=== PATIENT | male | born 1940 | race Caucasian/White ===

== ENCOUNTER 2020-09-10 15:53 | Observation (INO) | payer OTHER ==
[~2020-09-10] VITALS: Ht 193 cm; Wt 104.3 kg
--- NOTE | ~2020-09-10 | EEG ---
PATIENT:CAROLE REESE MEDICAL RECORD: [id number] DATE OF : 44 LOCATION:D.222 D.MS ADMISSION DATE: 09/10/20 REFERRING PHYSICIAN: INTERPRETING PHYSICIAN: SHIRLENE YBARRA MD DATE OF SERVICE: 09/10/2020 ROOM NUMBER: [id number]. EEG ORDERED BY: Dr. Denny. CASE HISTORY: A 79-year-old male found down unresponsive at home with the patient reporting prodromal symptoms of feeling like he would pass out and then going to his bedroom and lying down and on arousal found EMS in his bedroom. Reportedly, there was suspicion of seizure. The patient had reported a similar episode 2 years ago. The patient was started on Keppra in the ER. PROCEDURE: EEG done as a routine bedside portable recording using the standard 10-20 international electrode system. A 16-channel was used with 17th as EKG. Photic stimulation done as activation procedure. DESCRIPTION: EEG opens with the patient awake with the record displaying a well-organized posterior dominant rhythm of 8 Hz, this is of moderate amplitude, symmetric and attenuates with eye opening. Occasional bilateral independent single theta slow waves were seen as well as rare to infrequent bilateral independent single sharp waves. There was a possible slight predominance of these nonspecific changes in the left hemisphere. No epileptiform change such as spike, polyspike, or spike and wave was seen. Photic stimulation did not yield a photoparoxysmal response. IMPRESSION: Mildly abnormal EEG with nonspecific changes, this might suggest mild cortical dysfunction, there was no evidence of underlying seizure disorder in this recording. TRANSINT:[id number] Voice Confirmation ID: [id number] DOCUMENT ID: [id number] SHIRLENE YBARRA MD CC: [id number] DICTATION DATE: 09/11/20 1230 AIR BAG STRIPPER: 09/11/20 1324 ADM IN [facility] [address] [place] [address]
[2020-09-10 16:10] LABS: BASOPHILS 0.2 % (0-2); EOSINOPHILS 2.5 % (0-7); HEMATOCRIT 48.1 % (42.0-54.0); HEMOGLOBIN 16.6 g/dL (13.5-17.5); IMMATURE GRANULOCYTES 0.7 % (0-5); LYMPHOCYTE ABS# 1.23 10x3/uL (1.32-3.57); LYMPHOCYTES 28.4 % (15-50); MCH 31.7 pg (26.0-34.0); MCHC 34.5 g/dL (31.0-37.0); MCV 91.8 fL (80.0-100.0); MEAN PLATELET VOLUME 11.4 fL (7.4-10.4); MONOCYTES 5.8 % (2-11); NEUTROPHILS 62.4 % (40-80); PLATELET COUNT 150 10x3/uL (130-400); RBC 5.24 10x6/uL (4.20-6.10); RDW 13.1 % (11.5-14.5); WBC 4.3 10x3/uL (4.8-10.8)
[2020-09-10 16:17] LABS: BILIRUBIN NEGATIVE (NEGATIVE); KETONE MODERATE mg/dL (NEGATIVE); NITRITE NEGATIVE (NEGATIVE); UROBILINOGEN NORMAL mg/dL (< 2)
[2020-09-10 16:18] LABS: WHITE CELLS - URINE OCC HPF (0-1)
[2020-09-10 16:19] LABS: APTT 23.4 SECONDS (22.8-39.4); INR 1.13 (0.85-1.17); PROTIME 13.4 SECONDS (11.6-15.0)
[2020-09-10 16:27] LABS: UDS - AMPHET NEGATIVE QUAL (NEGATIVE); UDS - BARB NEGATIVE QUAL (NEGATIVE); UDS - BENZO NEGATIVE QUAL (NEGATIVE); UDS - COCAINE NEGATIVE QUAL (NEGATIVE); UDS - OPIATE NEGATIVE QUAL (NEGATIVE); UDS - PCP NEGATIVE QUAL (NEGATIVE); UDS - THC POSITIVE QUAL (NEGATIVE)
[2020-09-10 16:31] LABS: CALC OSMOLALITY 279 mosm/kg (275-300); CALCIUM 9.3 mg/dL (8.5-10.1); CARBON DIOXIDE 24.3 mmol/L (21.0-32.0); CHLORIDE - SERUM 101 mmol/L (98-107); GLUCOSE 150 mg/dL (74-106); POTASSIUM - SERUM 3.6 mmol/L (3.5-5.1); SODIUM 140 mmol/L (136-145); UREA NITROGEN 8 mg/dL (7-18); eGFR NON AFRICAN AMERICAN 77 mL/min (90-120)
[2020-09-10 16:45] LABS: ALBUMIN 4.2 g/dL (3.4-5.0); ALKALINE PHOSPHATASE 69 U/L (30-120); ALT (SGPT) 25 U/L (10-68); BILIRUBIN - TOTAL 0.93 mg/dL (0.2-1.3); CREATINE KINASE 117 UL (21-232); MAGNESIUM - SERUM 2.1 mg/dL (1.8-2.4); PROTEIN - SERUM 7.7 g/dL (6.4-8.2); THYROID STIMULATING HORMONE 5.75 uIU/mL (0.36-3.74)
[2020-09-10 16:46] LABS: TROPONIN-I < 0.017 ng/mL (0.000-0.060)
[2020-09-10 17:31] VITALS: BP 143/86
[2020-09-10 19:01] VITALS: BP 140/82
[2020-09-10 19:39] VITALS: BMI 28.0
[2020-09-10 20:00] VITALS: BP 145/78
--- NOTE | 2020-09-10 21:54 | NUR ---
PT HAS ARRIVED TO FLOOR. ALERT AND ORIENTED X3. NO SHORTNESS OF BREATH. PT COMPLAINS OF SOME LEFT HIP PAIN. NO OTHER COMPLAINTS AT THIS TIME. ABLE TO MAKE WANTS AND NEEDS KNOWN CLEARLY. USES URINAL. NEW IV PLACED TO THE LOWER LEFT FA, 20 G. SLEEPING AT THIS MOMENT.
[2020-09-11] VITALS: BP 136/60
[2020-09-11 04:00] VITALS: BP 121/62
[2020-09-11 05:55] LABS: BASOPHILS 0.2 % (0-2); EOSINOPHILS 1.8 % (0-7); HEMATOCRIT 44.5 % (42.0-54.0); HEMOGLOBIN 15.2 g/dL (13.5-17.5); IMMATURE GRANULOCYTES 0.2 % (0-5); LYMPHOCYTE ABS# 1.08 10x3/uL (1.32-3.57); LYMPHOCYTES 19.3 % (15-50); MCH 31.2 pg (26.0-34.0); MCHC 34.2 g/dL (31.0-37.0); MCV 91.4 fL (80.0-100.0); MEAN PLATELET VOLUME 11.4 fL (7.4-10.4); MONOCYTES 5.9 % (2-11); NEUTROPHIL ABS# 4.08 10x3/uL (1.78-5.38); NEUTROPHILS 72.6 % (40-80); PLATELET COUNT 135 10x3/uL (130-400); RBC 4.87 10x6/uL (4.20-6.10); RDW 12.8 % (11.5-14.5)
[2020-09-11 06:16] LABS: WBC 5.6 10x3/uL (4.8-10.8)
[2020-09-11 06:26] LABS: ALBUMIN 3.5 g/dL (3.4-5.0); ALKALINE PHOSPHATASE 62 U/L (30-120); ALT (SGPT) 21 U/L (10-68); BILIRUBIN - TOTAL 0.91 mg/dL (0.2-1.3); CALC OSMOLALITY 276 mosm/kg (275-300); CALCIUM 8.9 mg/dL (8.5-10.1); CARBON DIOXIDE 24.9 mmol/L (21.0-32.0); CHLORIDE - SERUM 105 mmol/L (98-107); CREATININE - SERUM 0.8 mg/dL (0.6-1.3); POTASSIUM - SERUM 3.3 mmol/L (3.5-5.1); PROTEIN - SERUM 6.8 g/dL (6.4-8.2); SODIUM 140 mmol/L (136-145); UREA NITROGEN 7 mg/dL (7-18); eGFR NON AFRICAN AMERICAN > 90 mL/min (90-120)
[2020-09-11 06:30] LABS: GLUCOSE 91 mg/dL (74-106)
--- NOTE | 2020-09-11 07:30 | NUR ---
ALERT AND ORIENTED. ASSESSMENT COMPLETE. DENIES NEEDS. BED LOW. CALL MONROE AND PERSONAL ITEMS IN REACH. WILL CONTINUE TO MONITOR.
[2020-09-11 08:42] VITALS: BP 135/75
--- NOTE | 2020-09-11 10:19 | NUR ---
OFFERED TO PLACE SCD'S ON PATIENT. EXPLAINED BSCDS ARE TO KEEP HIM FROM GETTING BLOOD CLOTS IN HIS LEGS SINCE HE IS IN BED AND NOT UP MOVING LIKE HE USUSALLY WOULD AT HOME. PATIENT VERBALIZED UNDERSTANDING BUT REFUSED BECAUSE HE SAID HE IS GOING HOME TODAY AND DOESNT NEED THEM. NOTIFIED PAIGE GONSALVES AND SONJA GONSALVES NM
--- NOTE | 2020-09-11 12:38 | NUR ---
PATIENT RETURNED FROM MRI. STATES DOES NOT WANT TO BE HOOKED UP TO IV AT THIS TIME. EATING LUNCH.
[2020-09-11 13:32] VITALS: Ht 193 cm; Wt 104.3 kg
--- NOTE | 2020-09-11 13:38 | NUR ---
SPOKE WITH DR YBARRA WHO STATES PATIENT IS SAYING HE HAS HAD SEVERE LEFT HIP PAIN SINCE SECOND SEIZURE PRIOR TO ADMIT. STATES TO CALL DR STEPHENSON OR SRINIVASA AND SEE IF ORTHO NEEDS TO BE CONSULTED. PER NEURO, PATIENT OK TO DC ON PO KEPPRA.
[2020-09-11 14:04] VITALS: BP 139/80
--- NOTE | 2020-09-11 15:46 | NUR ---
PAGED DR STEPHENSON AGAIN. STILL WAITING CALL BACK.
[2020-09-11 16:49] VITALS: BP 168/88
[2020-09-11] MEDS ORDERED: KEPPRA750 MG PO (18:16)
--- NOTE | 2020-09-11 18:51 | NUR ---
DC EDUCATION PROVIDED BOTH WRITTEN AND VERBAL. VERBALIZED UNDERSTANDING. DENIES FURTHER QUESTIONS. IV REMOVED FROM LFA AND LEFT AC WITH TIPS INTACT. PATIENT DENIES NEEDS. DC HOME WITH WITH ALL BELONGINGS.
== END 2020-09-11 18:52 | disposition home or self-care (01) ==
LOC: D.ER 15:53 → D.MS 17:46 → OBSVTIME 17:46 → D.MS 17:46
PROVIDERS: Family Medicine; ADMIT Emergency Medicine; ATTEND Emergency Medicine
DX: R56.9 Unspecified convulsions (principal); M70.60 Trochanteric bursitis, unspecified hip